=== PATIENT | female | born 1950 | race Caucasian/White ===

== ENCOUNTER 2021-09-11 13:15 | Emergency (ER) | payer MEDICARE ==
[~2021-09-11] VITALS: Ht 160 cm; Wt 64.0 kg
[2021-09-11] MEDS ORDERED: LABETALOL HCL 5 MG/ML 20ML VIAL IV STA (14:22)
[2021-09-11] MEDS ORDERED: SODIUM CHLORIDE 0.9% 1000ML 1,000 ML IV SCH (14:30)
[2021-09-11] MEDS ORDERED: ONDANSETRON HCL INJ 2MG/ML 2ML 2 MG/ML VIAL IV NR (14:30)
[2021-09-11] MEDS ORDERED: ONDANSETRON HCL INJ 2MG/ML 2ML 2 MG/ML VIAL ONE (15:00)
[2021-09-11] MEDS ORDERED: CLONIDINE HCL 0.1 MG TAB ONE (15:00)
[2021-09-11] MEDS ORDERED: SODIUM CHLORIDE 0.9% 1000ML 1,000 ML ONE ×2 (15:00→16:47)
[2021-09-11] MEDS ORDERED: CLONIDINE HCL 0.1 MG TAB PO ONE (15:15)
[2021-09-11] MEDS ORDERED: NORVASC5 MG PO (18:11)
[2021-09-11 18:12] VITALS: BP 187/84
[2021-09-11] MEDS ORDERED: AMLODIPINE BESYL5 MG PO (18:35)
== END 2021-09-11 18:19 | disposition home or self-care (01) ==
LOC: FSED 13:30
DX: I10 Essential (primary) hypertension (principal); R42 Dizziness and giddiness; E03.9 Hypothyroidism, unspecified; R51.9 Headache, unspecified; R11.0 Nausea; Z79.899 Other long term (current) drug therapy
CPT/HCPCS: 70450; 71046; 80053; 81003; 82553; 84484; 85025; 93005; 96374; 99284; J2405; J7030